=== PATIENT | female | born 1995 | race Caucasian/White ===

== ENCOUNTER 2016-09-24 23:49 | Emergency (ER) | payer OTHER ==
[2016-09-25 00:12] VITALS: BP 123/79; PULSE 127; TEMP 99.3; BMI 35.6
--- NOTE | 2016-09-25 00:45 | PDOC ---
History of Present Illness - General History Source: Patient Exam Limitations: No Limitations - History of Present Illness Initial Comments: 09/25/16 00:53 The patient is a 21 year old female with significant past medical history of seizure disorder who presents to the ED with 1 week of sore throat. Patient reports she is able to swallow liquids, but not solids. No sick contacts or recent travels. The patient denies fever, chills, cough, SOB, chest pain, and palpitations. The patient denies abdominal pain, nausea, vomiting, and diarrhea. Allergies: NKDA Social History: Denies alcohol, tobacco, or drug use. Past Surgical History: None reported PCP: Dr. Dionna Frias <Balbina Loo - Last Filed: 09/25/16 01:54> - General History Source: Patient <OscarAba handy - Last Filed: 09/25/16 02:43> - General Chief Complaint: Sore Throat Stated Complaint: COLD SYMPTOMS Time Seen by Provider: 09/25/16 00:43 Past History <Balbina Loo - Last Filed: 09/25/16 01:54> - Past Medical History Seizures: Yes (EPILEPSY) - Immunization History Immunization Up to Date: Yes - Psycho/Social/Smoking Cessation Hx Anxiety: No Suicidal Ideation: No Smoking Status: No Smoking History: Never smoked Have you smoked in the past 12 months: No Number of Cigarettes Smoked Daily: 0 Hx Alcohol Use: No Drug/Substance Use Hx: No Substance Use Type: None <Aba Pandya - Last Filed: 09/25/16 02:43> - Past Medical History Allergies/Adverse Reactions: Allergies Allergy/AdvReac Type Severity Reaction Status Date / Time shellfish derived Allergy Intermediate Hives Verified 06/24/16 12:46 Home Medications: Ambulatory Orders Albuterol Sulfate Inhaler - [Ventolin HFA Inhaler -] 2 inh PO Q4H #1 inh Ibuprofen 800 mg PO TID #30 tablet 09/25/16 Levetiracetam [Keppra -] 1,000 mg PO BID 09/25/16 Penicillin V Potassium [Pen Vee K -] 500 mg PO TID #30 tablet 09/25/16 Topiramate 50 mg PO BID 09/25/16 Review of Systems - Review of Systems Able to Perform ROS?: Yes Comments:: 09/25/16 00:54 CONSTITUTIONAL: Absent: fever, no chills, no fatigue EYES: Absent: visual changes ENT: +sore throat Absent: ear pain CARDIOVASCULAR: Absent: chest pain, no palpitations RESPIRATORY: Absent: cough, no SOB GI: Absent: abdominal pain, no nausea, no vomiting, no constipation, no diarrhea GENITOURINARY: Absent: dysuria, no frequency, no hematuria MUSKULOSKELETAL: Absent: back pain, no arthralgia, no myalgia SKIN: Absent: rash NEURO: Absent: headache <CindaBalbina - Last Filed: 09/25/16 01:54> *Physical Exam - Vital Signs Last Vital Signs Temp Pulse Resp BP Pulse Ox 99.3 F 127 H 18 123/79 97 09/25/16 00:10 09/25/16 00:10 09/25/16 00:10 09/25/16 00:10 09/25/16 00:10 - Physical Exam Comments: 09/25/16 00:54 GENERAL: Well-appearing, well-nourished. Mild distress. During exam, pt almost developed a laryngeal spasm. HEENT: Normocephalic, atraumatic. PERRL, EOM intact. No exudates or enlargement of posterior pharynx CARDIOVASCULAR: Normal S1, S2. Regular rate and rhythm. PULMONARY: Clear to auscultation bilaterally. ABDOMEN: Soft, non-distended, non-tender. EXTREMITIES: Normal ROM in all four extremities. No gross deformities. SKIN: Warm, dry. No rash NEUROLOGICAL: No focal neurological deficits. <Balbina Loo - Last Filed: 09/25/16 01:54> - Vital Signs Last Vital Signs Temp Pulse Resp BP Pulse Ox 99.3 F 127 H 18 123/79 97 09/25/16 00:10 09/25/16 00:10 09/25/16 00:10 09/25/16 00:10 09/25/16 00:10 <Aba Pandya - Last Filed: 09/25/16 02:43> ED Treatment Course - RADIOLOGY Radiograph Interpretation: 09/25/16 01:54 EXAM: X-ray next soft tissue AP and lateral views Reviewed by Imaging orthodontist vice president: FINDINGS: The airway is widely patent. No radiopaque foreign bodies Normal appearance of the epiglottis The prevertebral soft tissues are within normal limits The visualized upper lungs are clear No osseous abnormalities <Balbina Loo - Last Filed: 09/25/16 01:54> Medical Decision Making - Medical Decision Making 09/25/16 01:58 Dr. Pandya: The scribe's documentation has been prepared under my direction and personally reviewed by me in its entirery. I confirm that the note above accurately reflects all work, treatment, procedures, and medical decision making performed by me. Pt xray was negative for Epiglottis. Pt still have moderate pain on swallowing. Will treat for pharyngitis. Rx Pen VK 500mg, Ibuprofen 800mg. Pt will be discharge <Aba Pandya - Last Filed: 09/25/16 02:43> *DC/Admit/Observation/Transfer - Attestations Scribe Attestion: 09/25/16 00:54 Documentation prepared by Balbina Loo, acting as director global medical affairs for Aba Pandya MD <Balbina Loo - Last Filed: 09/25/16 01:54> - Discharge Dispostion Admit: No <Aba Pandya - Last Filed: 09/25/16 02:43> Diagnosis at time of Disposition: Pharyngitis Qualifiers: Pharyngitis/tonsillitis etiology: unspecified etiology Qualified Code(s): J02.9 - Acute pharyngitis, unspecified - Discharge Dispostion Disposition: HOME Condition at time of disposition: Stable - Prescriptions Prescriptions: Ibuprofen 800 mg PO TID #30 tablet Penicillin V Potassium [Pen Vee K -] 500 mg PO TID #30 tablet - Referrals Referrals: Valerie Frias MD [Primary Care Provider] - Robert Ro MD [Staff Physician] - - Patient Instructions Printed Discharge Instructions: DI for Pharyngitis/Tonsillopharyngitis -- Adult
[2016-09-25] MEDS ORDERED: PENICILLIN V POTASSIUM 250 MG/5 ML 100 ML BOTTLE PO ONE (01:51)
[2016-09-25] MEDS ORDERED: IBUPROFEN 100 MG/5 ML UNIT DOSE CUPS PO ONE (01:55)
[2016-09-25] MEDS ORDERED: IBUPROFEN 400 MG TABLET (FP) PO ONE (02:31)
== END 2016-09-25 03:13 | disposition home or self-care (01) ==
LOC: JER 23:49
DX: J02.9 Acute pharyngitis, unspecified (principal); G40.909 Epilepsy, unspecified, not intractable, without status epilepticus
CPT/HCPCS: 70360-TC; 84703; 99281-25

== ENCOUNTER 2016-09-26 11:08 | Emergency (ER) | payer OTHER ==
[2016-09-26 11:14] VITALS: BMI 35.6
--- NOTE | 2016-09-26 11:26 | PDOC ---
History of Present Illness - General History Source: Patient Exam Limitations: No Limitations - History of Present Illness Initial Comments: 09/26/16 12:01 The patient is a 21 year old female, with a significant past medical history of epilepsy(on Keppra), who presents to the emergency department complaining of a sore throat and cough for approximately 2 days. The patient reports she presented to the ED with similar symptoms on Thursday, where she received an Neck X-Ray which was negative. The patient reports she was given penicillin and motrin with no relief of symptoms. Today, she reports congestion, rhinorrhea, nausea and various emetic episodes(non-bloody/non-bilious). The patient reports a decrease in appetite and difficulty swallowing solids due to throat swelling. The patient reports she has been unable to keep down her penicillins or motrin. The patient denies any chills, headache, or dizziness. The patient denies any abdominal pain, diarrhea, or constipation. The patient denies any dysuria, hematuria, frequency or urgency. The patient denies any recent travel or sick contacts. Allergies: Shellfish(hives), NKDA Past Surgical History: None reported. Social History: Non-smoker. Denies alcohol or drug use. PCP: Dr. Frias <Jerome Owens - Last Filed: 09/26/16 12:01> <Constance Smart - Last Filed: 09/27/16 08:45> - General Chief Complaint: Pain Stated Complaint: VOMITING, ABD PAIN Time Seen by Provider: 09/26/16 11:22 Past History <Jerome Owens - Last Filed: 09/26/16 12:01> - Past Medical History Seizures: Yes (EPILEPSY) - Immunization History Immunization Up to Date: Yes - Psycho/Social/Smoking Cessation Hx Anxiety: No Suicidal Ideation: No Smoking Status: No Smoking History: Never smoked Have you smoked in the past 12 months: No Number of Cigarettes Smoked Daily: 0 Information on smoking cessation initiated: No Hx Alcohol Use: No Drug/Substance Use Hx: No Substance Use Type: None <Constance Smart - Last Filed: 09/27/16 08:45> - Past Medical History Allergies/Adverse Reactions: Allergies Allergy/AdvReac Type Severity Reaction Status Date / Time shellfish derived Allergy Intermediate Hives Verified 09/26/16 11:10 Home Medications: Ambulatory Orders Albuterol Sulfate Inhaler - [Ventolin HFA Inhaler -] 2 inh PO Q4H #1 inh Ibuprofen 800 mg PO TID #30 tablet 09/25/16 Levetiracetam [Keppra -] 1,000 mg PO BID 09/25/16 Penicillin V Potassium [Pen Vee K -] 500 mg PO TID #30 tablet 09/25/16 Topiramate 50 mg PO BID 09/25/16 Review of Systems - Review of Systems Able to Perform ROS?: Yes Comments:: 09/26/16 12:02 GENERAL/CONSTITUTIONAL: No fever or chills. No weakness. HEAD, EYES, EARS, NOSE AND THROAT: +Sore throat, +nasal congestion, + rhinorrhea. No change in vision. No ear pain or discharge. CARDIOVASCULAR: No chest pain or shortness of breath. RESPIRATORY: +Cough. No wheezing or hemoptysis. GASTROINTESTINAL: +Nausea, +vomiting. No diarrhea or constipation. GENITOURINARY: No dysuria, frequency, or change in urination. MUSCULOSKELETAL: No joint or muscle swelling or pain. No neck or back pain. SKIN: No rash NEUROLOGIC: No headache, vertigo, loss of consciousness, or change in strength/ sensation. ENDOCRINE: +Decreased appetite. No increased thirst. No abnormal weight change. HEMATOLOGIC/LYMPHATIC: No anemia, easy bleeding, or history of blood clots. ALLERGIC/IMMUNOLOGIC: No hives or skin allergy. <Jerome Owens - Last Filed: 09/26/16 12:01> *Physical Exam - Vital Signs Last Vital Signs Temp Pulse Resp BP Pulse Ox 98.7 F 97 H 18 108/74 100 09/26/16 11:12 09/26/16 11:12 09/26/16 11:12 09/26/16 11:12 09/26/16 11:12 - Physical Exam Comments: 09/26/16 12:04 GENERAL: Awake, alert, and fully oriented, in no acute distress HEAD: No signs of trauma EYES: PERRLA, EOMI, sclera anicteric, conjunctiva clear ENT: Auricles normal inspection, hearing grossly normal, nares patent. Moist mucosa. Clear rhinorrhea. Pharyngeal erythema, but no tonsillar exudates NECK: Normal ROM, supple, no lymphadenopathy, JVD, or masses LUNGS: Intermittent dry cough. Breath sounds equal, clear to auscultation bilaterally. No wheezes, and no crackles HEART: Regular rate and rhythm, normal S1 and S2, no murmurs, rubs or gallops ABDOMEN: Soft, nontender, normoactive bowel sounds. No guarding, no rebound. No masses EXTREMITIES: Normal range of motion, no edema. No clubbing or cyanosis. No cords, erythema, or tenderness NEUROLOGICAL: Cranial nerves II through XII grossly intact. Normal speech, normal gait SKIN: Warm, Dry, normal turgor, no rashes or lesions noted. <Jerome Owens - Last Filed: 09/26/16 12:01> - Vital Signs Last Vital Signs Temp Pulse Resp BP Pulse Ox 98.7 F 97 H 18 108/74 100 09/26/16 11:12 09/26/16 11:12 09/26/16 11:12 09/26/16 11:12 09/26/16 11:12 <Constance Smart - Last Filed: 09/27/16 08:45> ED Treatment Course - LABORATORY CBC & Chemistry Diagram: 09/26/16 12:00 09/26/16 12:00 <Constance Smart - Last Filed: 09/27/16 08:45> Medical Decision Making - Medical Decision Making 09/26/16 14:26 Pt reassessed. She states that she is feeling much better. Able to tolerate PO, and pain is relieved. I counseled her to continue the penicillin. RSV and flu are negative. Stable for DC home. <Constance Smart - Last Filed: 09/27/16 08:45> *DC/Admit/Observation/Transfer - Attestations Scribe Attestion: 09/26/16 12:02 Documentation prepared by Jerome Owens, acting as medical numerical control operator for Constance Smart MD. <Jerome Owens - Last Filed: 09/26/16 12:01> - Discharge Dispostion Admit: No <Constance Smart - Last Filed: 09/27/16 08:45> Diagnosis at time of Disposition: Pharyngitis Qualifiers: Pharyngitis/tonsillitis etiology: unspecified etiology Qualified Code(s): J02.9 - Acute pharyngitis, unspecified - Discharge Dispostion Disposition: HOME Condition at time of disposition: Stable - Referrals Referrals: Valerie Frias MD [Primary Care Provider] - - Patient Instructions Printed Discharge Instructions: DI for Pharyngitis/Tonsillopharyngitis -- Adult
[2016-09-26] MEDS ORDERED: DEXAMETHASONE SOD PHOSPHATE 10 MG/1 ML VIAL IVPB ONE (11:58)
[2016-09-26] MEDS ORDERED: KETOROLAC TROMETHAMINE 30 MG/1 ML VIAL IVPUSH ONE (11:58)
[2016-09-26] MEDS ORDERED: SODIUM CHLORIDE 1,000 ML IV STA (11:58)
[2016-09-26] MEDS ORDERED: KETOROLAC TROMETHAMINE 30 MG/1 ML VIAL ONE (12:02)
[2016-09-26] MEDS ORDERED: DEXAMETHASONE SOD PHOSPHATE 10 MG/1 ML VIAL ONE (12:09)
[2016-09-26 12:22] LABS: BASOPHIL 0.9 % (0-2.0); EOSINOPHIL 5.8 % (0-4.5); MCH 30.9 pg (25.7-33.7); MCHC 35.2 g/dl (32.0-36.0); MEAN CELL VOLUME 87.7 fl (80-96); NEUTROPHILS 57.7 % (42.8-82.8); PLATELET COUNT 297 K/MM3 (134-434); RDW 12.2 % (11.6-15.6); WHITE BLOOD COUNT 7.3 K/mm3 (4.0-10.0)
[2016-09-26 12:49] LABS: CALCIUM 8.4 mg/dL (8.5-10.1); CREATININE 0.5 mg/dL (0.55-1.02)
[2016-09-26 14:33] VITALS: BP 103/63; PULSE 74; TEMP 98.1
== END 2016-09-26 14:33 | disposition home or self-care (01) ==
LOC: JER 11:08
PROC: 3E0333Z Introduction of Anti-inflammatory into Peripheral Vein, Percutaneous Approach (ICD-10-PCS; principal; 2016-09-26)
PROC: 3E0333Z Introduction of Anti-inflammatory into Peripheral Vein, Percutaneous Approach (ICD-10-PCS; 2016-09-26)
DX: J02.9 Acute pharyngitis, unspecified (principal); G40.909 Epilepsy, unspecified, not intractable, without status epilepticus
CPT/HCPCS: 36415; 80048; 85025; 87420; 87804; 96374; 96375; 99283-25

== ENCOUNTER 2017-05-27 20:14 | Emergency (ER) | payer OTHER ==
--- NOTE | 2017-05-27 20:46 | PDOC ---
History of Present Illness - General History Source: Patient Exam Limitations: No Limitations - History of Present Illness Initial Comments: 05/27/17 20:54 The patient is a 22 year old female with a significant PMH of epilepsy (on Keppra) who presents to the emergency department s/p seizure just prior to arrival. The patient reports that her seizures just come on with no prior warning. She reports an associated slight headache. She is compliant with her medications. The patient denies any other complaints. The patient denies any recent travel or sick contacts. The patient denies chest pain, shortness of breath, and dizziness. Denies fever, chills, nausea, vomit, diarrhea and constipation. Denies dysuria, frequency, urgency and hematuria. Allergies: NKDA Past surgical history: None reported. Social history: No reported toxic habits PCP: Not on Staff. <Dallas Moore - Last Filed: 05/27/17 20:53> - General History Source: Patient <Aba Pandya - Last Filed: 05/27/17 22:56> - General Chief Complaint: Seizure Stated Complaint: SEIZURE Time Seen by Provider: 05/27/17 20:42 Past History <Dallas Moore - Last Filed: 05/27/17 20:53> - Past Medical History Seizures: Yes (EPILEPSY) - Immunization History Immunization Up to Date: Yes - Suicide/Smoking/Psychosocial Hx Smoking Status: No Smoking History: Never smoked Have you smoked in the past 12 months: No Number of Cigarettes Smoked Daily: 0 Hx Alcohol Use: No Drug/Substance Use Hx: No Substance Use Type: None <Aba Pandya - Last Filed: 05/27/17 22:56> - Past Medical History Allergies/Adverse Reactions: Allergies Allergy/AdvReac Type Severity Reaction Status Date / Time shellfish derived Allergy Intermediate Hives Verified 05/27/17 20:36 Home Medications: Ambulatory Orders Albuterol Sulfate Inhaler - [Ventolin HFA Inhaler -] 2 inh PO Q4H #1 inh Levetiracetam [Keppra -] 1,000 mg PO BID 09/25/16 Topiramate 50 mg PO BID 09/25/16 Levofloxacin [Levaquin -] 500 mg PO DAILY #4 tablet 05/27/17 Review of Systems - Review of Systems Able to Perform ROS?: Yes Comments:: 05/27/17 20:54 CONSTITUTIONAL: Absent: fever, chills, diaphoresis, generalized weakness, malaise, loss of appetite HEENT: Absent: rhinorrhea, nasal congestion, throat pain, throat swelling, difficulty swallowing, mouth swelling, ear pain, eye pain, visual Changes CARDIOVASCULAR: Absent: chest pain, syncope, palpitations, irregular heart rate, lightheadedness , peripheral edema RESPIRATORY: Absent: cough, shortness of breath, dyspnea with exertion, orthopnea, wheezing, stridor, hemoptysis GASTROINTESTINAL: Absent: abdominal pain, abdominal distension, nausea, vomiting, diarrhea, constipation, melena, hematochezia GENITOURINARY: Absent: dysuria, frequency, urgency, hesitancy, hematuria, flank pain, genital pain MUSCULOSKELETAL: Absent: myalgia, arthralgia, joint swelling SKIN: Absent: rash, itching, pallor HEMATOLOGIC/IMMUNOLOGIC: Absent: easy bleeding, easy bruising, lymphadenopathy, frequent infections ENDOCRINE: Absent: unexplained weight gain, unexplained weight loss, heat intolerance, cold intolerance NEUROLOGIC: (+) Headache. Absent: focal weakness or paresthesias, dizziness, unsteady gait, seizure, mental status changes, bladder or bowel incontinence PSYCHIATRIC: Absent: anxiety, depression, suicidal or homicidal ideation, hallucinations. <Dallas Moore - Last Filed: 05/27/17 20:53> *Physical Exam - Vital Signs Last Vital Signs Temp Pulse Resp BP Pulse Ox 98.4 F 90 15 128/80 100 05/27/17 20:38 05/27/17 20:38 05/27/17 20:38 05/27/17 20:38 05/27/17 20:38 - Physical Exam Comments: 05/27/17 20:54 Adult PE GENERAL: Well developed, well nourished. Awake and alert. No acute distress. HEENT: Normocephalic, atraumatic. PERRLA, EOMI. No conjunctival pallor. Sclera are non- icteric. Moist mucous membranes. Oropharynx is clear. NECK: Supple. Full ROM. No JVD. Carotid pulses 2+ and symmetric, without bruits. No thyromegaly. No lymphadenopathy. CARDIOVASCULAR: Regular rate and rhythm. No murmurs, rubs, or gallops. Distal pulses are 2+ and symmetric. PULMONARY: No evidence of respiratory distress. Lungs clear to auscultation bilaterally. No wheezing, rales or rhonchi. ABDOMINAL: Soft. Non-tender. Non-distended. No rebound or guarding. No organomegaly. Normoactive bowel sounds. MUSCULOSKELETAL Normal range of motion at all joints. No bony deformities or tenderness. No CVA tenderness. EXTREMITIES: No cyanosis. No clubbing. No edema. No calf tenderness. SKIN: Warm and dry. Normal capillary refill. No rashes. No jaundice. NEUROLOGICAL: Alert, awake, appropriate, and oriented. Cranial nerves 2-12 intact. No deficits to light touch and temperature in face, upper extremities and lower extremities. No motor deficits in the in face, upper extremities and lower extremities. Normoreflexic in the upper and lower extremities. Normal speech. Toes are downgoing bilaterally. Gait is normal without ataxia. PSYCHIATRIC: Cooperative. Good eye contact. Appropriate mood and affect. <Dallas Moore - Last Filed: 05/27/17 20:53> - Vital Signs Last Vital Signs Temp Pulse Resp BP Pulse Ox 98.4 F 90 15 128/80 100 05/27/17 20:38 05/27/17 20:38 05/27/17 20:38 05/27/17 20:38 05/27/17 20:38 <Aba Pandya - Last Filed: 05/27/17 22:56> ED Treatment Course - LABORATORY CBC & Chemistry Diagram: 05/27/17 21:07 05/27/17 21:55 <Aba Pandya - Last Filed: 05/27/17 22:56> Medical Decision Making - Medical Decision Making 05/27/17 22:54 Dr. Pandya: The scribe's documentation has been prepared under my direction and personally reviewed by me in its entirery. I confirm that the note above accurately reflects all work, treatment, procedures, and medical decision making performed by me. patient has not seized since she's been in the department. Patient has also concomitant urinary tract infection. discharged with antibiotic that was transmitted to her pharmacy. <Aba Pandya - Last Filed: 05/27/17 22:56> *DC/Admit/Observation/Transfer - Attestations Scribe Attestion: 05/27/17 20:54 Documentation prepared by Dallas Moore, acting as medical office representative for Aba Pandya DO. <Dallas Moore - Last Filed: 05/27/17 20:53> - Discharge Dispostion Admit: No <Aba Pandya - Last Filed: 05/27/17 22:56> Diagnosis at time of Disposition: Seizure, UTI (urinary tract infection) - Discharge Dispostion Disposition: HOME Condition at time of disposition: Improved - Prescriptions Prescriptions: Levofloxacin [Levaquin -] 500 mg PO DAILY #4 tablet - Referrals Referrals: Valerie Frias MD [Primary Care Provider] - - Patient Instructions Printed Discharge Instructions: DI for Urinary Tract Infection (UTI), DI for Seizure Disorder -- Adult
[2017-05-27] MEDS ORDERED: levETIRAcetam 500 MG/5 ML INJECTION VIAL IVPB ONE ×2 (20:47→21:00)
[2017-05-27] MEDS ORDERED: ACETAMINOPHEN 500 MG TABLET (FP) PO ONE (20:47)
[2017-05-27] MEDS ORDERED: TOPIRAMATE 25 MG TABLET (FP) PO ONE (20:48)
[2017-05-27 20:49] VITALS: BP 128/80; PULSE 90; TEMP 98.4; BMI 23.8
[2017-05-27] MEDS ORDERED: TOPIRAMATE 25 MG TABLET (FP) ONE ×2 (21:00→21:09)
[2017-05-27] MEDS ORDERED: ACETAMINOPHEN 325 MG TABLET (FP) ONE ×2 (21:00→21:09)
[2017-05-27 21:18] LABS: BASOPHIL 1.4 % (0-2.0); EOSINOPHIL 3.8 % (0-4.5); MCH 31.1 pg (25.7-33.7); MCHC 35.3 g/dl (32.0-36.0); MEAN PLT VOLUME 8.3 fl (7.5-11.1); NEUTROPHILS 45.6 % (42.8-82.8); PLATELET COUNT 292 K/MM3 (134-434); RDW 12.5 % (11.6-15.6); WHITE BLOOD COUNT 7.5 K/mm3 (4.0-10.0)
[2017-05-27] MEDS ORDERED: ONDANSETRON 4 MG/2 ML VIAL IVPUSH STA (21:34)
[2017-05-27 21:35] LABS: URINE APPEARANCE CLOUDY; URINE BILIRUBIN NEGATIVE (NEGATIVE); URINE BLOOD 1+ (NEGATIVE); URINE COLOR YELLOW; URINE GLUCOSE (UA) NEGATIVE (NEGATIVE); URINE KETONE NEGATIVE (NEGATIVE); URINE NITRITE NEGATIVE (NEGATIVE); URINE UROBILINOGEN NEGATIVE mg/dL (0.2-1.0)
[2017-05-27] MEDS ORDERED: ONDANSETRON 4 MG/2 ML VIAL ONE (21:37)
[2017-05-27 21:39] LABS: URINE PROTEIN 1+ (NEGATIVE)
[2017-05-27 22:17] LABS: GRANULAR CASTS 7 /lpf; URINE BACTERIA RARE /hpf (NONE SEEN); URINE HYALINE CAST 5 /lpf; URINE MUCUS RARE; URINE RBC 5 /hpf (0-3); URINE WBC 6 /hpf (3-5)
[2017-05-27 22:24] LABS: ALBUMIN 3.7 g/dl (3.4-5.0); ALK PHOS 66 U/L (45-117); ANION GAP 8 (8-16); BILIRUBIN,TOTAL 0.3 mg/dL (0.2-1.0); CALCIUM 8.1 mg/dL (8.5-10.1); CO2 22 mmol/L (21-32); CREATININE 0.6 mg/dL (0.55-1.02); GLUCOSE,RANDOM 89 mg/dL (74-106); SGOT/AST 33 U/L (15-37); SGPT/ALT 68 U/L (12-78); TOT PROT 7.1 g/dl (6.4-8.2)
[2017-05-27 22:25] LABS: URINE LEUK ESTERASE TRACE (NEGATIVE)
[2017-05-27] MEDS ORDERED: LEVOFLOXACIN 500 MG TABLET (FP) PO ONE (22:53)
[2017-05-27] MEDS ORDERED: LEVOFLOXACIN 500 MG TABLET (FP) ONE (22:57)
== END 2017-05-27 23:03 | disposition home or self-care (01) ==
LOC: JER 20:14
PROC: 3E033GC Introduction of Other Therapeutic Substance into Peripheral Vein, Percutaneous Approach (ICD-10-PCS; principal; 2017-05-27)
DX: R56.9 Unspecified convulsions (principal); N39.0 Urinary tract infection, site not specified
CPT/HCPCS: 36415; 80053; 81003; 81015; 83735; 84703; 85025; 99283-25

== ENCOUNTER 2017-07-16 16:24 | Emergency (ER) | payer OTHER ==
--- NOTE | 2017-07-16 16:44 | PDOC ---
Attending Attestation - Resident Resident Name: Nick Thapa - ED Attending Attestation I have performed the following: I have examined & evaluated the patient, The case was reviewed & discussed with the resident, I agree w/resident's findings & plan, Exceptions are as noted - HPI HPI: 07/16/17 16:43 Breakthrough Seizure - Physicial Exam PE: 07/16/17 16:44 VSS/NAD, Recovered from post ictal period - Medical Decision Making 07/16/17 16:[address] Thapa's Assessment and Plan
[2017-07-16 16:45] VITALS: BP 104/72; PULSE 105; TEMP 98.7; BMI 38.9
[2017-07-16] MEDS ORDERED: ACETAMINOPHEN 500 MG TABLET (FP) PO ONE (17:08)
[2017-07-16] MEDS ORDERED: ACETAMINOPHEN INJECTION 100 ML IVPB ONE (17:20)
--- NOTE | 2017-07-16 17:22 | PDOC ---
History of Present Illness - General Chief Complaint: Seizure Stated Complaint: Seizure Time Seen by Provider: 07/16/17 16:30 History Source: Patient, Family Exam Limitations: No Limitations - History of Present Illness Initial Comments: 07/16/17 17:09 The patient is a 22F with a PMH of seizures, on Keppra and Topomax, who presents to the ED via EMS for a witnessed seizure. The patient's sister states that she was talking to the patient and saw that the patient had a blank stare on her face and then began to roll her eyes in her head and bit her tongue. She was slowly lowered to the ground and EMS was called. The patient was disoriented after this episode. The patient states that this usually happens when she has a UTI. She is unsure if she is or not - she has unprotected sex and irregular periods. Past History - Past Medical History Allergies/Adverse Reactions: Allergies Allergy/AdvReac Type Severity Reaction Status Date / Time shellfish derived Allergy Intermediate Hives Verified 05/27/17 20:36 Home Medications: Ambulatory Orders Albuterol Sulfate Inhaler - [Ventolin HFA Inhaler -] 2 inh PO Q4H #1 inh Levetiracetam [Keppra -] 1,000 mg PO BID 09/25/16 Topiramate 50 mg PO BID 09/25/16 Levofloxacin [Levaquin -] 500 mg PO DAILY #4 tablet 05/27/17 COPD: No Seizures: Yes (EPILEPSY) - Immunization History Immunization Up to Date: Yes - Suicide/Smoking/Psychosocial Hx Smoking Status: No Smoking History: Never smoked Have you smoked in the past 12 months: No Number of Cigarettes Smoked Daily: 0 Information on smoking cessation initiated: No Hx Alcohol Use: No Drug/Substance Use Hx: No Substance Use Type: None Review of Systems - Review of Systems Able to Perform ROS?: Yes Comments:: 07/16/17 17:30 GENERAL/CONSTITUTIONAL: No fever or chills. No weakness. HEAD, EYES, EARS, NOSE AND THROAT: No change in vision. No ear pain or discharge. No sore throat. GASTROINTESTINAL: No nausea, vomiting, diarrhea, constipation, or abdominal pain. GENITOURINARY: Positive for questionable UTI. No dysuria, frequency, hematuria, or change in urination. CARDIOVASCULAR: No chest pain, palpitations, or lightheadedness. RESPIRATORY: No cough, wheezing, shortness of breath, or hemoptysis. MUSCULOSKELETAL: No joint or muscle swelling or pain. No neck or back pain. SKIN: No rash or lesions. NEUROLOGIC: Positive for seizure and headache. No numbness, tingling, weakness, loss of consciousness, or change in strength/sensation. ENDOCRINE: No increased thirst. No abnormal weight change. HEMATOLOGIC/LYMPHATIC: No anemia, easy bleeding, or history of blood clots. ALLERGIC/IMMUNOLOGIC: No hives or skin allergy. Is the patient limited Vietnamese proficient: No *Physical Exam - Vital Signs Last Vital Signs Temp Pulse Resp BP Pulse Ox 98.7 F 105 H 20 104/72 100 07/16/17 16:41 07/16/17 16:41 07/16/17 16:41 07/16/17 16:41 07/16/17 16:41 - Physical Exam Comments: 07/16/17 17:39 GENERAL: Well developed, well nourished. Awake and alert. No acute distress. HEENT: Normocephalic, atraumatic. Hearing grossly normal. Moist mucous membranes. PERRLA, EOMI. No conjunctival pallor. Sclera are non-icteric. Oropharynx is clear. NECK: Supple. Full ROM. No JVD. CARDIOVASCULAR: Regular rate and rhythm. No murmurs, rubs, or gallops. Distal pulses are 2+ and symmetric. PULMONARY: No evidence of respiratory distress. Lungs clear to auscultation bilaterally. No wheezing, rales or rhonchi. ABDOMINAL: Soft. Non-tender. Non-distended. No rebound or guarding. No organomegaly. Normoactive bowel sounds. GENITOURINARY: No CVA tenderness bilaterally. MUSCULOSKELETAL: Normal range of motion at all joints. No bony deformities or tenderness. EXTREMITIES: No cyanosis. No clubbing. No edema. No calf tenderness. SKIN: Warm and dry. Normal capillary refill. No rashes. No jaundice. NEUROLOGICAL: Alert, awake, appropriate. Cranial nerves 2-12 intact. No deficits to light touch and temperature in face, upper extremities and lower extremities. No motor deficits in the in face, upper extremities and lower extremities. Normoreflexic in the upper and lower extremities. Normal speech. Gait is normal without ataxia. PSYCHIATRIC: Cooperative. Good eye contact. Appropriate mood and affect. ED Treatment Course - LABORATORY CBC & Chemistry Diagram: 07/16/17 17:15 07/16/17 17:15 Medical Decision Making - Medical Decision Making 07/16/17 17:41 The patient is a 22 F with a PMH of seizures on keppra and topomax, compliant with meds, who presents to the ER after having a witnessed seizure. I have sent basic labs and UA. Will reassess when labs/imaging return. The patient states she is nauseous and has a headache. Will give zofran and tylenol IV to prevent PO. 07/16/17 20:13 The patient states that her headache is continuing and she now has a stomach ache. Toradol and pepcid were ordered. 07/16/17 20:34 All labs WNL. Patient states she feels much better. Clinically ready for d/c. Pt agrees. *DC/Admit/Observation/Transfer Diagnosis at time of Disposition: Seizure - Discharge Dispostion Disposition: HOME Condition at time of disposition: Stable Admit: No - Referrals Referrals: Valerie Frias MD [Primary Care Provider] - - Patient Instructions Printed Discharge Instructions: Seizure Disorder -- Adult - Post Discharge Activity
[2017-07-16 17:31] LABS: BASO # 0.1 # (0.1-1); BASO % 1.1 % (0-2.0); EOS # 0.2 # (0-4.5); EOS % 2.7 % (0-4.5); LYMPH # 3.3 (8-40); MCH 30.6 pg (25.7-33.7); MCHC 34.4 g/dl (32.0-36.0); MEAN CELL VOLUME 89.2 fl (80-96); MEAN PLT VOLUME 8.3 fl (7.5-11.1); MONO # 0.4 # (3.8-10.2); NEUT # 2.9 # (42.8-82.8); NEUT % 42.7 % (42.8-82.8); PLATELET COUNT 286 K/MM3 (134-434); RDW 12.3 % (11.6-15.6); WHITE BLOOD COUNT 6.8 K/mm3 (4.0-10.0)
[2017-07-16] MEDS ORDERED: ACETAMINOPHEN 1000 MG/100 ML VIAL (NON FORMULARY) IVPB ONE (17:32)
[2017-07-16] MEDS ORDERED: ONDANSETRON 4 MG/2 ML VIAL ONE (17:32)
[2017-07-16] MEDS ORDERED: ONDANSETRON 4 MG/2 ML VIAL IVPUSH ONE (17:32)
[2017-07-16 17:59] LABS: URINE APPEARANCE CLOUDY; URINE BILIRUBIN NEGATIVE (NEGATIVE); URINE BLOOD NEGATIVE (NEGATIVE); URINE COLOR YELLOW; URINE GLUCOSE (UA) NEGATIVE (NEGATIVE); URINE KETONE TRACE (NEGATIVE); URINE NITRITE NEGATIVE (NEGATIVE); URINE PROTEIN NEGATIVE (NEGATIVE); URINE UROBILINOGEN NEGATIVE mg/dL (0.2-1.0)
[2017-07-16 18:13] LABS: URINE LEUK ESTERASE 1+ (NEGATIVE)
[2017-07-16 18:18] LABS: ANION GAP 10 (8-16); CALCIUM 8.6 mg/dL (8.5-10.1); CO2 20 mmol/L (21-32); CREATININE 0.5 mg/dL (0.55-1.02); GLUCOSE,RANDOM 95 mg/dL (74-106); SGOT/AST 22 U/L (15-37); SGPT/ALT 52 U/L (12-78)
[2017-07-16 18:19] LABS: ALK PHOS 87 U/L (45-117); BILIRUBIN,TOTAL 0.5 mg/dL (0.2-1.0); TOT PROT 7.7 g/dl (6.4-8.2)
[2017-07-16 18:27] LABS: URINE MUCUS RARE; URINE RBC 4 /hpf (0-3); URINE WBC 5 /hpf (3-5)
[2017-07-16] MEDS ORDERED: KETOROLAC TROMETHAMINE 30 MG/1 ML VIAL IVPUSH ONE (19:44)
[2017-07-16] MEDS ORDERED: FAMOTIDINE IV 20 MG/12 ML VIAL IVPUSH ONE (19:44)
[2017-07-16] MEDS ORDERED: KETOROLAC TROMETHAMINE 30 MG/1 ML VIAL ONE (19:44)
[2017-07-16] MEDS ORDERED: FAMOTIDINE 20 MG/50 ML IVPB 20 MG/50 ML MG IVPB ONE (19:45)
[2017-07-16 23:07] LABS: URINE LEUK ESTERASE Negative (NEGATIVE)
== END 2017-07-16 21:12 | disposition home or self-care (01) ==
LOC: JER 16:24
PROC: 3E033NZ Introduction of Analgesics, Hypnotics, Sedatives into Peripheral Vein, Percutaneous Approach (ICD-10-PCS; principal; 2017-07-16)
PROC: 3E0333Z Introduction of Anti-inflammatory into Peripheral Vein, Percutaneous Approach (ICD-10-PCS; 2017-07-16)
PROC: 3E033GC Introduction of Other Therapeutic Substance into Peripheral Vein, Percutaneous Approach (ICD-10-PCS; 2017-07-16)
PROC: 3E033GC Introduction of Other Therapeutic Substance into Peripheral Vein, Percutaneous Approach (ICD-10-PCS; 2017-07-16)
DX: G40.909 Epilepsy, unspecified, not intractable, without status epilepticus (principal)
CPT/HCPCS: 36415; 80053; 81003; 81015; 84703; 85025; 99282-25

== ENCOUNTER 2017-09-08 00:16 | Emergency (ER) | payer OTHER ==
--- NOTE | 2017-09-08 00:26 | PDOC ---
History of Present Illness - General History Source: Patient Exam Limitations: No Limitations - History of Present Illness Initial Comments: 09/08/17 00:57 The patient is a 22 year old female with history of seizure disorder (on Keppra and Topamax) brought in by EMS after an episode of tonic-clonic activity, consistent with prior seizures, tonight. The episode was witnessed by patient's family. The family report the episode occurred while the patient was in bed. No fall. The patient denies any tongue biting or urinary incontinence. The patient reports her seizures have been increasing in frequency over the past year. She is scheduled for 24 hr EEG. <Karen Lam - Last Filed: 09/08/17 00:57> <Iban Roblero - Last Filed: 09/08/17 02:22> <Melva Santoyo - Last Filed: 09/08/17 02:24> - General Chief Complaint: Seizure Stated Complaint: SEIZURE Time Seen by Provider: 09/08/17 00:24 Past History <Karen Lam - Last Filed: 09/08/17 00:57> <Iban Roblero - Last Filed: 09/08/17 02:22> - Past Medical History COPD: No Seizures: Yes (EPILEPSY) - Immunization History Immunization Up to Date: Yes - Suicide/Smoking/Psychosocial Hx Smoking Status: No Smoking History: Never smoked Have you smoked in the past 12 months: No Number of Cigarettes Smoked Daily: 0 Information on smoking cessation initiated: No Hx Alcohol Use: No Drug/Substance Use Hx: No Substance Use Type: None <Melva Santoyo - Last Filed: 09/08/17 02:24> - Past Medical History Allergies/Adverse Reactions: Allergies Allergy/AdvReac Type Severity Reaction Status Date / Time shellfish derived Allergy Intermediate Hives Verified 09/08/17 00:19 Home Medications: Ambulatory Orders Topiramate 50 mg PO BID 09/25/16 levETIRAcetam [Keppra -] 1,000 mg PO BID 09/25/16 Albuterol Sulfate Inhaler - [Ventolin HFA Inhaler -] 2 inh PO Q4H PRN 09/08/17 Review of Systems - Review of Systems Able to Perform ROS?: Yes Comments:: 09/08/17 01:00 GENERAL/CONSTITUTIONAL: No fever or chills. No weakness. HEAD, EYES, EARS, NOSE AND THROAT: No change in vision. No ear pain or discharge. No sore throat. No tongue biting. GASTROINTESTINAL: No nausea, vomiting, diarrhea or constipation. GENITOURINARY: No dysuria, frequency, or change in urination. CARDIOVASCULAR: No chest pain or shortness of breath. RESPIRATORY: No cough, wheezing, or hemoptysis. MUSCULOSKELETAL: No joint or muscle swelling or pain. No neck or back pain. SKIN: No rash NEUROLOGIC: +Tonic clonic activity. No headache, vertigo, or change in strength/ sensation. No urinary incontinence. ENDOCRINE: No increased thirst. No abnormal weight change. HEMATOLOGIC/LYMPHATIC: No anemia, easy bleeding, or history of blood clots. ALLERGIC/IMMUNOLOGIC: No hives or skin allergy. <Karen Lam - Last Filed: 09/08/17 00:57> *Physical Exam - Vital Signs Last Vital Signs Temp Pulse Resp BP Pulse Ox 98.7 F 109 H 14 119/79 100 09/08/17 00:19 09/08/17 00:19 09/08/17 00:19 09/08/17 00:19 09/08/17 00:19 - Physical Exam Comments: 09/08/17 01:04 GENERAL: Awake, alert, and fully oriented, in no acute distress HEAD: No signs of trauma EYES: PERRLA, EOMI, sclera anicteric, conjunctiva clear ENT: Auricles normal inspection, hearing grossly normal, nares patent, oropharynx clear without exudates. Moist mucosa NECK: Normal ROM, supple, no lymphadenopathy, JVD, or masses LUNGS: Breath sounds equal, clear to auscultation bilaterally. No wheezes, and no crackles HEART: Regular rate and rhythm, normal S1 and S2, no murmurs, rubs or gallops ABDOMEN: Soft, nontender, normoactive bowel sounds. No guarding, no rebound. No masses EXTREMITIES: Normal range of motion, no edema. No clubbing or cyanosis. No cords, erythema, or tenderness BACK: No midline spinal tenderness in cervical/thoracic/lumbar region NEUROLOGICAL: Normal speech, cranial nerves intact, negative pronator drift, 5/ 5 strength in all 4 extremities, normal sensation to light touch in all 4 extremities, normal cerebellar exam, normal gait, normal reflexes and tone SKIN: Warm, Dry, normal turgor, no rashes or lesions noted. <Karen Lam - Last Filed: 09/08/17 00:57> - Vital Signs Last Vital Signs Temp Pulse Resp BP Pulse Ox 98.7 F 109 H 14 119/79 100 09/08/17 00:19 09/08/17 00:19 09/08/17 00:19 09/08/17 00:19 09/08/17 00:19 <Iban Roblero - Last Filed: 09/08/17 02:22> - Vital Signs Last Vital Signs Temp Pulse Resp BP Pulse Ox 98.7 F 109 H 14 119/79 100 09/08/17 00:19 09/08/17 00:19 09/08/17 00:19 09/08/17 00:19 09/08/17 00:19 <Melva Santoyo - Last Filed: 09/08/17 02:24> ED Treatment Course - LABORATORY CBC & Chemistry Diagram: 09/08/17 00:33 09/08/17 00:33 - ADDITIONAL ORDERS Additional order review: 09/08/17 00:33 RBC 3.94 MCV 89.3 MCHC 34.5 RDW 12.1 MPV 8.2 Neutrophils % 59.3 D Lymphocytes % 32.2 D Monocytes % 6.7 Eosinophils % 0.9 Basophils % 0.9 - Medications Given in the ED: ED Medications Discontinued Medications Generic Name Dose Route Start Last Admin Trade Name Freq PRN Reason Stop Dose Admin Levetiracetam 1,000 mg 09/08/17 00:35 09/08/17 00:54 Keppra Injection - IVPB 09/08/17 00:36 1,000 mg ONCE ONE Administration <Karen Lam - Last Filed: 09/08/17 00:57> - LABORATORY CBC & Chemistry Diagram: 09/08/17 00:33 09/08/17 00:33 - ADDITIONAL ORDERS Additional order review: Laboratory Results 09/08/17 02 00:33 00:33 Sodium 138 Potassium 3.2 L Chloride 107 Carbon Dioxide 22 Anion Gap 9 BUN 18 Creatinine 0.5 L Creat Clearance w eGFR > 60 Random Glucose 103 Calcium 8.6 Total Bilirubin 0.3 D AST 23 ALT 60 Alkaline Phosphatase 84 Total Protein 7.1 Albumin 3.7 Serum , Qual Negative 09/08/17 00:33 RBC 3.94 MCV 89.3 MCHC 34.5 RDW 12.1 MPV 8.2 Neutrophils % 59.3 D Lymphocytes % 32.2 D Monocytes % 6.7 Eosinophils % 0.9 Basophils % 0.9 - Medications Given in the ED: ED Medications Discontinued Medications Generic Name Dose Route Start Last Admin Trade Name Karo PRN Reason Stop Dose Admin Levetiracetam 1,000 mg 09/08/17 00:35 09/08/17 00:54 Keppra Injection - IVPB 09/08/17 00:36 1,000 mg ONCE ONE Administration Ondansetron HCl 4 mg 09/08/17 01:42 09/08/17 01:55 Zofran Injection IVPUSH 09/08/17 01:43 4 mg ONCE ONE Administration <Iban Roblero - Last Filed: 09/08/17 02:22> - LABORATORY CBC & Chemistry Diagram: 09/08/17 00:33 09/08/17 00:33 <Melva Santoyo - Last Filed: 09/08/17 02:24> Medical Decision Making - Medical Decision Making 09/08/17 02:[address] Stern ([phone]) @1:36am. Awaiting call back. 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 Dr. Moraes called back @2:15am. Case discussed. <Iban Roblero - Last Filed: 09/08/17 02:22> - Medical Decision Making 09/08/17 00:52 22-year-old female brought in by ambulance from home after she had a witnessed tonic-clonic seizure that lasted about 5 minutes. There was witnessed by her family members and occur in her bed. There is no head trauma and she did not bite her tongue or have urinary incontinence. Very short postictal period because upon arrival, she was alert and able to answer all questions. Does not have headache, neck pain, fever or chills, nausea, vomiting She is on Keppra and Topamax for her medications. She states that she is compliant with these medications. She does have an appointment already with her neurologist for in-house EEG next week because there is any increase in the number of her seizures over the past few months. She did have a seizure in May, June, and obviously tonight in August. Neurologist is Dr. Ted Stern at [address] [place] [address]. Telephone number Plan is to give her keppra IV and contact her neurologist. Labs pending 09/08/17 01:35 reviewed labs, k=3.2 and will be supplemented <Melva Santoyo - Last Filed: 09/08/17 02:24> *DC/Admit/Observation/Transfer - Attestations Scribe Attestion: 09/08/17 01:05 Documentation prepared by Karen Lam, acting as medical imaging tech for Melva Santoyo MD. <Karen Lam - Last Filed: 09/08/17 00:57> <Iban Roblero - Last Filed: 09/08/17 02:22> <Melva Santoyo - Last Filed: 09/08/17 02:24> Diagnosis at time of Disposition: Seizure - Discharge Dispostion Disposition: HOME Condition at time of disposition: Stable - Patient Instructions Printed Discharge Instructions: DI for Seizure Disorder -- Adult Additional Instructions: Please follow up with your neurologist and continue to take your seizure medications
[2017-09-08 00:33] VITALS: BP 119/79; PULSE 109; TEMP 98.7; BMI 31.4
[2017-09-08] MEDS ORDERED: levETIRAcetam 500 MG/5 ML INJECTION VIAL IVPB ONE ×2 (00:35→00:51)
[2017-09-08 00:48] LABS: BASO % 0.9 % (0-2.0); EOS % 0.9 % (0-4.5); HEMATOCRIT 35.2 % (32.4-45.2); HEMOGLOBIN 12.2 GM/dL (10.7-15.3); LYMPH % 32.2 % (8-40); MCH 30.8 pg (25.7-33.7); MCHC 34.5 g/dl (32.0-36.0); MEAN CELL VOLUME 89.3 fl (80-96); MEAN PLT VOLUME 8.2 fl (7.5-11.1); MONO % 6.7 % (3.8-10.2); NEUT % 59.3 % (42.8-82.8); PLATELET COUNT 257 K/MM3 (134-434); RBC 3.94 M/mm3 (3.60-5.2); RDW 12.1 % (11.6-15.6); WHITE BLOOD COUNT 10.4 K/mm3 (4.0-10.0)
[2017-09-08 01:12] LABS: ALBUMIN 3.7 g/dl (3.4-5.0); ANION GAP 9 (8-16); BILIRUBIN,TOTAL 0.3 mg/dL (0.2-1.0); BLOOD UREA NITROGEN 18 mg/dL (7-18); CALCIUM 8.6 mg/dL (8.5-10.1); CHLORIDE 107 mmol/L (98-107); CO2 22 mmol/L (21-32); CREATININE 0.5 mg/dL (0.55-1.02); GLUCOSE,RANDOM 103 mg/dL (74-106); POTASSIUM 3.2 mmol/L (3.5-5.1); SGOT/AST 23 U/L (15-37); SGPT/ALT 60 U/L (12-78); SODIUM 138 mmol/L (136-145)
[2017-09-08 01:13] LABS: ALK PHOS 84 U/L (45-117); TOT PROT 7.1 g/dl (6.4-8.2)
[2017-09-08] MEDS ORDERED: POTASSIUM CHLORIDE TABS 20 MEQ TABLET.ER (FP) PO ONE ×2 (01:35→02:29)
[2017-09-08] MEDS ORDERED: ONDANSETRON 4 MG/2 ML VIAL IVPUSH ONE (01:42)
[2017-09-08] MEDS ORDERED: ONDANSETRON 4 MG/2 ML VIAL ONE (01:47)
== END 2017-09-08 02:37 | disposition home or self-care (01) ==
LOC: JER 00:16
PROC: 3E033GC Introduction of Other Therapeutic Substance into Peripheral Vein, Percutaneous Approach (ICD-10-PCS; principal; 2017-09-08)
DX: G40.509 Epileptic seizures related to external causes, not intractable, without status epilepticus (principal)
CPT/HCPCS: 36415; 80053; 84703; 85025; 96374; 96375; 99282-25

== ENCOUNTER 2017-10-07 21:32 | Emergency (ER) | payer OTHER ==
[2017-10-07 22:01] VITALS: BP 100/59; PULSE 111; TEMP 99.4; BMI 34.6
[2017-10-07] MEDS ORDERED: AZITHROMYCIN 250 MG TABLET PO ONE (22:35)
--- NOTE | 2017-10-07 22:35 | PDOC ---
History of Present Illness - General Chief Complaint: Cold Symptoms Stated Complaint: COLD SYMPTOMS Time Seen by Provider: 10/07/17 22:13 History Source: Patient Exam Limitations: No Limitations - History of Present Illness Initial Comments: 10/07/17 22:37 Patient came for evaluation of acute onset of fevers Tmax 103 last night, and sore throat pain. , denies cough, has generalized body aches. Timing/Duration: reports: getting worse Severity: reports: mild, moderate Associated Symptoms: reports: denies symptoms, facial pain, fever/chills, headache. denies: cough Past History - Travel Traveled outside of the country in the last 30 days: No Close contact w/someone who was outside of country & ill: No - Past Medical History Allergies/Adverse Reactions: Allergies Allergy/AdvReac Type Severity Reaction Status Date / Time shellfish derived Allergy Intermediate Hives Verified 10/07/17 22:01 Home Medications: Ambulatory Orders levETIRAcetam [Keppra -] 1,000 mg PO BID 09/25/16 Azithromycin [Zithromax -] 250 mg PO UTDICT #6 tab 10/07/17 Topiramate [Trokendi Xr] 200 mg PO ASDIR 10/07/17 COPD: No Seizures: Yes (EPILEPSY) - Immunization History Immunization Up to Date: Yes - Suicide/Smoking/Psychosocial Hx Smoking Status: No Smoking History: Never smoked Have you smoked in the past 12 months: No Number of Cigarettes Smoked Daily: 0 Information on smoking cessation initiated: No Hx Alcohol Use: No Drug/Substance Use Hx: No Substance Use Type: None Review of Systems - Review of Systems Able to Perform ROS?: Yes Is the patient limited [place] proficient: Yes Constitutional: Yes: Symptoms Reported, See HPI, Chills, Fever, Malaise HEENTM: Yes: Symptoms Reported, See HPI, Nose Congestion, Throat Pain, Throat Swelling, Difficulty Swallowing Respiratory: Yes: See HPI. No: Symptoms reported, Cough Musculoskeletal: No: Symptoms Reported All Other Systems: Reviewed and Negative *Physical Exam - Vital Signs Last Vital Signs Temp Pulse Resp BP Pulse Ox 99.4 F 111 H 19 100/59 98 10/07/17 21:50 10/07/17 21:50 10/07/17 21:50 10/07/17 21:50 10/07/17 21:50 - Physical Exam General Appearance: Yes: Nourished, Appropriately Dressed, Apparent Distress, Mild Distress HEENT: positive: NATHAN, TMs Normal (David but landmarks easily visualized), Pharyngeal Erythema, Tonsillar Erythema, Rhinorrhea. 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, Fully Oriented, Alert, Normal Mood/ Affect Progress Note - Progress Note Progress Note: Pharyngitis, we will treat with azithromycin as is probable strep *DC/Admit/Observation/Transfer Diagnosis at time of Disposition: Pharyngitis Qualifiers: Pharyngitis/tonsillitis etiology: unspecified etiology Qualified Code(s): J02.9 - Acute pharyngitis, unspecified - Discharge Dispostion Disposition: HOME Condition at time of disposition: Stable Admit: No - Referrals Referrals: Valerie Frias MD [Primary Care Provider] - - Patient Instructions Printed Discharge Instructions: DI for Pharyngitis/Tonsillopharyngitis -- Adult Additional Instructions: Rest, drink lots of fluids: Teas, water, soups Eat cold things: Ice cream, ice pops, ice chips Saltwater gargles Steamy showers/seem to face break up mucus Avoid contact with others until fevers and pain resolved Lots of handwashing and good hygiene, this is contagious Azithromycin as directed Tylenol or Motrin for fever and pain Followup with private physician in one to 2 days as needed if not improving Return to emergency department for worsened symptoms, fevers, dehydration - Post Discharge Activity Forms/Work/School Notes: Back to Work
[2017-10-07] MEDS ORDERED: AZITHROMYCIN 250 MG TABLET ONE ×2 (22:37)
== END 2017-10-07 22:42 | disposition home or self-care (01) ==
LOC: JERFT 21:32
DX: J02.9 Acute pharyngitis, unspecified (principal)
CPT/HCPCS: 84703; 99281-25

== ENCOUNTER 2017-12-09 19:00 | Emergency (ER) | payer OTHER ==
[2017-12-09 19:09] VITALS: TEMP 98.4; BMI 35.6
--- NOTE | 2017-12-09 19:34 | PDOC ---
Attending Attestation - HPI HPI: 12/09/17 20:00 The patient is a 22 year old female with past medical history of seizures (on Keppra ) presents to the emergency department s/p seizure at work. The patient reports she doesn't remember the incident due to losing consciousness but remembers feeling disoriented prior, coworkers witness the incident and helped her. The patient reports she daily takes her medications. The patient reports a localized posterior neck soreness for the past 3 days. The patient reports her medication were adjusted by her neurologist 3 months ago. Denies urinary incontinence, tongue biting and no aura before the incident. Denies fever, chills, nausea, vomiting. Denies diarrhea or constipation. Denies dysuria, hematuria, frequency or urgency to urinate. Allergies: Shellfish derived Social history: None reported Neurologist: Dr. Ted Stern PCP: Dr. Rodriguez Padilla 12/09/17 20:41 - Medical Decision Making 12/09/17 20:00 Documentation prepared by Teri Muñiz, acting as medical technicians for Aba Pandya DO. <Teri Muñiz - Last Filed: 12/09/17 20:41> - Resident Resident Name: Nick Thapa - ED Attending Attestation I have performed the following: I have examined & evaluated the patient, The case was reviewed & discussed with the resident, I agree w/resident's findings & plan, Exceptions are as noted - Physicial Exam PE: 12/09/17 20:22 *Physical Exam General Appearance: Yes: Appropriately Dressed. No: Apparent Distress, Intoxicated HEENT: positive: EOMI, NATHAN, Normal ENT Inspection, Normal Voice, TMs Normal, Pharynx Normal. negative: Pale Conjunctivae, Photophobia, Scleral Icterus (R), Scleral Icterus (L) Neck: positive: Trachea midline, Normal Thyroid, Supple. negative: Tender, Rigid, Carotid bruit, Stridor, Lymphadenopathy (R), Lymphadenopathy (L), Thyromegaly Respiratory/Chest: positive: Lungs Clear, Normal Breath Sounds. negative: Chest Tender, Respiratory Distress, Accessory Muscle Use, Labored Respiration, RES, Crackles, Rales, Rhonchi, Stridor, Wheezing, Dullness Cardiovascular: positive: Regular Rhythm, Regular Rate, S1, S2. negative: Edema , JVD, Murmur, Bradycardia, Tachycardia Vascular Pulses: Dorsalis-Pedis (R): 2+, Doralis-Pedis (L): 2+ Gastrointestinal/Abdominal: positive: Normal Bowel Sounds, Flat, Soft. negative : Tender, Organomegaly, Pulsatile Mass, Increased Bowel Sounds, Decreased BS, Distended, Guarding, Rebound, Hernia, Hepatomegaly, Spleenomegaly Lymphatic: negative: Adenopathy, Tenderness Musculoskeletal: positive: Normal Inspection. negative: CVA Tenderness, Decreased Range of Motion Extremity: positive: Normal Capillary Refill, Normal Inspection, Normal Range of Motion, Pelvis Stable. negative: Tender, Pedal Edema, Swelling, Erythema Integumentary: positive: Normal Color, Dry, Warm. 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 negative: EOM Palsy, Facial Droop, Sensory Deficit - Medical Decision Making 12/09/17 21:45 Pt treated and released <Aba Pandya - Last Filed: 12/09/17 21:47> Discharge Disposition <Teri Muñiz - Last Filed: 12/09/17 20:41> - Discharge Dispostion Last Admission D/C Date: 08/26/15 Decision to Admit order: No <Aba Pandya - Last Filed: 12/09/17 21:47> - Diagnosis Seizure - Discharge Dispostion Disposition: HOME Condition at time of disposition: Stable - Referrals Referrals: Valerie Frias MD [Primary Care Provider] - - Patient Instructions Printed Discharge Instructions: DI for Seizure Disorder -- Adult - Post Discharge Activity
[2017-12-09] MEDS ORDERED: ACETAMINOPHEN 325 MG TABLET (FP) PO ONE (19:50)
[2017-12-09] MEDS ORDERED: ACETAMINOPHEN 325 MG TABLET (FP) ONE (19:52)
--- NOTE | 2017-12-09 19:54 | PDOC ---
History of Present Illness <Teri Muñiz - Last Filed: 12/09/17 20:16> - General History Source: Patient Exam Limitations: No Limitations - History of Present Illness Initial Comments: 12/09/17 19:52 The patient is a 22F with a PMH of seizures (on topomax and keppra) who presents to the ER after having a syncopal episode at work. The patient states that she was at work and felt her normal state of health when she lost consciousness and had a witnessed seizure. She denies any bowel or bladder incontinence and denies tongue biting but does state that she felt disoriented and feels weak and tired now. She has no other complaints except for neck soreness which has been going on for 3 days, constant, located at the posterior base of her neck and mildly relieved by tylenol. She has no other acute complaints. <Nick Thapa - Last Filed: 12/17/17 07:25> - General Chief Complaint: Seizure Stated Complaint: SEIZURE Past History <Teri Muñiz - Last Filed: 12/09/17 20:16> - Past Medical History COPD: No Seizures: Yes (EPILEPSY) - Immunization History Immunization Up to Date: Yes - Suicide/Smoking/Psychosocial Hx Smoking Status: No Smoking History: Never smoked Have you smoked in the past 12 months: No Number of Cigarettes Smoked Daily: 0 Hx Alcohol Use: No Drug/Substance Use Hx: No Substance Use Type: None <ElierNick - Last Filed: 12/17/17 07:25> - Past Medical History Allergies/Adverse Reactions: Allergies Allergy/AdvReac Type Severity Reaction Status Date / Time shellfish derived Allergy Intermediate Hives Verified 12/09/17 19:07 Home Medications: Ambulatory Orders Topiramate [Topamax] 50 mg PO DAILY 12/09/17 levETIRAcetam [Keppra -] 2,000 mg PO DAILY 12/09/17 Review of Systems - Review of Systems Able to Perform ROS?: Yes Comments:: 12/09/17 20:52 GENERAL/CONSTITUTIONAL: Positive for fatigue. No fever or chills. No weakness. HEAD, EYES, EARS, NOSE AND THROAT: No change in vision. No ear pain or discharge. No sore throat. CARDIOVASCULAR: No chest pain, palpitations, or lightheadedness. RESPIRATORY: No cough, wheezing, shortness of breath, or hemoptysis. GASTROINTESTINAL: No nausea, vomiting, diarrhea, constipation, or abdominal pain. GENITOURINARY: No dysuria, frequency, hematuria, or change in urination. MUSCULOSKELETAL: No joint or muscle swelling or pain. No neck or back pain. SKIN: No rash or lesions. NEUROLOGIC: Positive for seizures and LOC. No headache, numbness, tingling, weakness, or change in strength/sensation. ENDOCRINE: No increased thirst. No abnormal weight change. HEMATOLOGIC/LYMPHATIC: No anemia, easy bleeding, or history of blood clots. ALLERGIC/IMMUNOLOGIC: No hives or skin allergy. Is the patient limited Citizen [place] proficient: No <Nick Thapa - Last Filed: 12/17/17 07:25> *Physical Exam - Vital Signs Last Vital Signs Temp Pulse Resp BP Pulse Ox 98.4 F 88 18 119/70 100 12/09/17 19:08 12/09/17 19:08 12/09/17 19:08 12/09/17 19:08 12/09/17 19:08 <Teri Muñiz - Last Filed: 12/09/17 20:16> - Vital Signs Last Vital Signs Temp Pulse Resp BP Pulse Ox 98.4 F 88 18 119/70 100 12/09/17 19:08 12/09/17 19:08 12/09/17 19:08 12/09/17 19:08 12/09/17 19:08 - Physical Exam Comments: 12/09/17 20:53 GENERAL: Well developed, well nourished. Awake and alert. No acute distress. HEENT: Normocephalic, atraumatic. Hearing grossly normal. Moist mucous membranes. PERRLA, EOMI. No conjunctival pallor. Sclera are non-icteric. NECK: Supple. Full ROM. No point tenderness. CARDIOVASCULAR: Regular rate and rhythm. No murmurs, rubs, or gallops. PULMONARY: No evidence of respiratory distress. Lungs clear to auscultation bilaterally. No wheezing, rales or rhonchi. ABDOMINAL: Soft. Non-tender. Non-distended. No rebound or guarding. GENITOURINARY: No CVA tenderness bilaterally. MUSCULOSKELETAL: Normal range of motion at all joints. No bony deformities or tenderness. EXTREMITIES: No cyanosis. No clubbing. No edema. No calf tenderness. SKIN: Warm and dry. Normal capillary refill. No rashes. No jaundice. NEUROLOGICAL: Alert, awake, appropriate. Cranial nerves 2-12 intact. Normal speech. Gait is normal without ataxia. PSYCHIATRIC: Cooperative. Good eye contact. Appropriate mood and affect. <Nick Thapa - Last Filed: 12/17/17 07:25> ED Treatment Course - LABORATORY CBC & Chemistry Diagram: 12/09/17 19:30 12/09/17 19:30 - ADDITIONAL ORDERS Additional order review: Laboratory Results 12/09/17 12/09/17 19:30 19:30 Serum , Qual Negative Urine Color Yellow Urine Appearance Slcloudy Urine pH 6.0 Ur Specific Crane 1.019 Urine Protein Negative Urine Glucose (UA) Negative Urine Ketones Negative Urine Blood 1+ H Urine Nitrite Negative Urine Bilirubin Negative Urine Urobilinogen Negative Ur Leukocyte Esterase 2+ H Urine WBC (Auto) 5 Urine RBC (Auto) 2 Ur Epithelial Cells Moderate Urine Mucus Rare 12/09/17 19:30 RBC 4.12 MCV 89.3 MCHC 35.2 RDW 12.7 MPV 8.0 Neutrophils % 39.4 L D Lymphocytes % 51.0 H D Monocytes % 5.5 Eosinophils % 2.8 D Basophils % 1.3 - Medications Given in the ED: ED Medications Discontinued Medications Generic Name Dose Route Start Last Admin Trade Name Northq PRN Reason Stop Dose Admin Acetaminophen 650 mg 12/09/17 19:50 12/09/17 19:53 Tylenol - PO 12/09/17 19:51 650 mg ONCE ONE Administration <Teri Muñiz - Last Filed: 12/09/17 20:16> - LABORATORY CBC & Chemistry Diagram: 12/09/17 19:30 12/09/17 19:30 <Nick Thapa - Last Filed: 12/17/17 07:25> Medical Decision Making - Medical Decision Making 12/09/17 20:16 The EKG was read by Dr. Thapa at 19:41:58 Vent. rate: 63 bpm OR interval: 126 ms QRS duration: 72 ms QT/QTc: 438/448 ms Normal sinus rhythm <Teri Muñiz - Last Filed: 12/09/17 20:16> - Medical Decision Making 12/09/17 20:55 The patient is a 22F with a PMH of seizures who presents to the ER s/p syncopal episode. The patient states that this was seizure and witnessed by her coworker. Will give pt her night dose of Keppra and monitor. Will order basic labs to r/o metabolic causes and infectious causes of seizure. 12/09/17 22:24 All labs negative. Pt given keppra dose in ED. Pt is vitally stable and will f/ u with neurologist. Pt understands and is ready for d/c. <Nick Thapa - Last Filed: 12/17/17 07:25> *DC/Admit/Observation/Transfer <Teri Muñiz - Last Filed: 12/09/17 20:16> <Nick Thapa - Last Filed: 12/17/17 07:25> Diagnosis at time of Disposition: Seizure - Discharge Dispostion Disposition: HOME Condition at time of disposition: Stable - Referrals Referrals: Valerie Frias MD [Primary Care Provider] - - Patient Instructions Printed Discharge Instructions: DI for Seizure Disorder -- Adult Additional Instructions: Please follow up with your primary care physician and neurologist in 2-3 days. Please return to the ER if you have any signs or symptoms of chest pain, shortness of breath, uncontrollable fever, chills, nausea, vomiting, numbness, tingling, or weakness in any part of your body, changes in vision, or slurred speech. Please take your medications as prescribed. Please return to the ER if symptoms persist, worsen, or new symptoms arise. - Post Discharge Activity
[2017-12-09 19:57] LABS: BASO % 1.3 % (0-2.0); EOS % 2.8 % (0-4.5); HEMATOCRIT 36.8 % (32.4-45.2); HEMOGLOBIN 12.9 GM/dL (10.7-15.3); MCH 31.4 pg (25.7-33.7); MCHC 35.2 g/dl (32.0-36.0); MEAN CELL VOLUME 89.3 fl (80-96); MONO % 5.5 % (3.8-10.2); NEUT % 39.4 % (42.8-82.8); PLATELET COUNT 309 K/MM3 (134-434); RBC 4.12 M/mm3 (3.60-5.2); RDW 12.7 % (11.6-15.6); URINE APPEARANCE SLCLOUDY; URINE BILIRUBIN NEGATIVE (<2.0 mg/dL); URINE COLOR YELLOW; URINE GLUCOSE (UA) NEGATIVE (NEGATIVE); URINE KETONE NEGATIVE (NEGATIVE); URINE NITRITE NEGATIVE (NEGATIVE); URINE PROTEIN NEGATIVE (NEGATIVE); URINE UROBILINOGEN NEGATIVE mg/dL (0.2-1.0); WHITE BLOOD COUNT 6.7 K/mm3 (4.0-10.0)
[2017-12-09 20:05] LABS: URINE LEUK ESTERASE 2+ (NEGATIVE)
[2017-12-09 20:06] LABS: EPI CELLS MODERATE /HPF (FEW); URINE MUCUS RARE
[2017-12-09 20:28] LABS: ALBUMIN 3.9 g/dl (3.4-5.0); ALK PHOS 94 U/L (45-117); ANION GAP 10 (8-16); BILIRUBIN,TOTAL 0.3 mg/dL (0.2-1.0); BLOOD UREA NITROGEN 14 mg/dL (7-18); CALCIUM 8.4 mg/dL (8.5-10.1); CHLORIDE 108 mmol/L (98-107); CO2 21 mmol/L (21-32); CREATININE 0.6 mg/dL (0.55-1.02); GLUCOSE,RANDOM 101 mg/dL (74-106); POTASSIUM 3.6 mmol/L (3.5-5.1); SGOT/AST 32 U/L (15-37); SGPT/ALT 56 U/L (12-78); SODIUM 139 mmol/L (136-145); TOT PROT 7.6 g/dl (6.4-8.2)
[2017-12-09] MEDS ORDERED: KETOROLAC TROMETHAMINE 30 MG/1 ML VIAL IVPUSH ONE (20:41)
[2017-12-09] MEDS ORDERED: levETIRAcetam 500 MG/5 ML INJECTION VIAL IVPB ONE ×3 (20:41→20:50)
[2017-12-09] MEDS ORDERED: KETOROLAC TROMETHAMINE 30 MG/1 ML VIAL ONE (20:50)
[2017-12-09 21:52] VITALS: BP 124/71; PULSE 60
--- NOTE | 2017-12-10 11:57 | EKG ---
Test Reason : Blood Pressure : / mmHG Vent. Rate : 063 BPM Atrial Rate : 063 BPM P-R Int : 126 ms QRS Dur : 072 ms QT Int : 438 ms P-R-T Axes : 006 050 038 degrees QTc Int : 448 ms NORMAL SINUS RHYTHM NORMAL ECG WHEN COMPARED WITH ECG OF 19-OCT-2013 15:08, NO SIGNIFICANT CHANGE WAS FOUND Confirmed by NEETA RODRIGEZ MD ([id number]) on 12/10/2017 11:57:10 AM Referred By: Confirmed By:NEETA RODRIGEZ MD
== END 2017-12-09 21:52 | disposition home or self-care (01) ==
LOC: JER 19:00
PROC: 3E033GC Introduction of Other Therapeutic Substance into Peripheral Vein, Percutaneous Approach (ICD-10-PCS; principal; 2017-12-09)
PROC: 3E033NZ Introduction of Analgesics, Hypnotics, Sedatives into Peripheral Vein, Percutaneous Approach (ICD-10-PCS; 2017-12-09)
DX: G40.909 Epilepsy, unspecified, not intractable, without status epilepticus (principal); R55 Syncope and collapse
CPT/HCPCS: 36415; 80053; 81003; 81015; 84703; 85025; 93005; 93010; 99282-25

== ENCOUNTER 2018-05-23 13:37 | Emergency (ER) | payer OTHER ==
[2018-05-23 14:00] VITALS: BP 136/64; PULSE 72; TEMP 97.7; BMI 35.6
[2018-05-23] MEDS ORDERED: KETOROLAC TROMETHAMINE 60 MG/2 ML VIAL IM ONE (14:47)
[2018-05-23 14:48] LABS: URINE APPEARANCE CLOUDY; URINE BILIRUBIN NEGATIVE (<2.0 mg/dL); URINE COLOR YELLOW; URINE GLUCOSE (UA) NEGATIVE (NEGATIVE); URINE KETONE NEGATIVE (NEGATIVE); URINE LEUK ESTERASE 1+ (NEGATIVE); URINE NITRITE NEGATIVE (NEGATIVE); URINE PROTEIN 1+ (NEGATIVE); URINE UROBILINOGEN NEGATIVE mg/dL (0.2-1.0)
[2018-05-23] MEDS ORDERED: KETOROLAC TROMETHAMINE 60 MG/2 ML VIAL ONE (14:52)
[2018-05-23 14:53] LABS: HCG,QUALITATIVE URINE NEGATIVE
--- NOTE | 2018-05-23 14:56 | PDOC ---
History of Present Illness - General Chief Complaint: Pain Stated Complaint: PAIN Time Seen by Provider: 05/23/18 14:05 History Source: Patient Exam Limitations: No Limitations - History of Present Illness Travel History: No Timing/Duration: reports: constant Quality: reports: cramping Abdominal Pain Onset Location: reports: suprapubic (left) Pain Radiation: reports: no radiation Activities at Onset: reports: none Aggravating Factors: improves with: Movement Alleviating Factors: improves with: None Past History - Travel Traveled outside of the country in the last 30 days: No - Past Medical History Allergies/Adverse Reactions: Allergies Allergy/AdvReac Type Severity Reaction Status Date / Time shellfish derived Allergy Intermediate Hives Verified 05/23/18 14:00 Home Medications: Ambulatory Orders levETIRAcetam [Keppra -] 2,000 mg PO DAILY 12/09/17 Topiramate [Trokendi Xr] 200 mg PO DAILY 05/23/18 COPD: No Seizures: Yes (EPILEPSY) - Immunization History Immunization Up to Date: Yes - Suicide/Smoking/Psychosocial Hx Smoking Status: No Smoking History: Never smoked Have you smoked in the past 12 months: No Number of Cigarettes Smoked Daily: 0 Information on smoking cessation initiated: No Hx Alcohol Use: No Drug/Substance Use Hx: No Substance Use Type: None Patient Lives Alone: No Lives with/in: parents Review of Systems - Review of Systems Able to Perform ROS?: No Constitutional: No: Symptoms Reported HEENTM: No: Symptoms Reported Respiratory: No: Symptoms reported Cardiac (ROS): No: Symptoms Reported ABD/GI: Yes: Abdominal cramping (left suprapubic). No: Nausea : No: Symptoms Reported Musculoskeletal: No: Symptoms Reported Integumentary: No: Symptoms Reported Neurological: No: Symptoms reported Endocrine: No: Symptoms Reported Hematologic/Lymphatic: No: Symptoms Reported *Physical Exam - Vital Signs Last Vital Signs Temp Pulse Resp BP Pulse Ox 97.7 F 72 18 136/64 99 05/23/18 13:57 05/23/18 13:57 05/23/18 13:57 05/23/18 13:57 05/23/18 13:57 - Physical Exam General Appearance: Yes: Nourished, Appropriately Dressed. No: Apparent Distress HEENT: positive: EOMI, TMs Normal, Pharynx Normal. negative: Pale Conjunctivae Neck: positive: Normal Thyroid, Supple Respiratory/Chest: positive: Lungs Clear, Normal Breath Sounds. negative: Respiratory Distress, Accessory Muscle Use Cardiovascular: positive: Regular Rhythm, Regular Rate. negative: Murmur Female Pelvic Exam: positive: normal external exam. negative: discharge, vaginal bleeding Gastrointestinal/Abdominal: positive: Soft, Tenderness (left suprapubic) Musculoskeletal: negative: CVA Tenderness Extremity: positive: Normal Capillary Refill. negative: Pedal Edema Integumentary: positive: Normal Color, Warm, Moist Neurologic: positive: Normal Mood/Affect, Motor Strength 5/5 (ambulatory) ED Treatment Course - RADIOLOGY Radiology Studies Ordered: Category Date Time Status PELVIC / BLADDER US [US] Stat Ultrasound 05/23/18 14:46 Ordered TRANSVAGINAL ULTRASOUND US [US] Stat Ultrasound 05/23/18 14:46 Ordered Medical Decision Making - Medical Decision Making 05/23/18 14:50 CC: Left suprapubic pain x 3 days. hx irreg menses (LMP 08/2017) and left ovarian cyst Exan: left suprapubic tenderness. No vag discharge , no mid or right suprapubic pain Plan: ua, upreg, toradol im , and u/s 05/23/18 16:05 Laboratory Tests 05/23/18 14:40 Urine Protein 1+ H Urine Blood 1+ H Ur Leukocyte Esterase 1+ H Urine WBC (Auto) 11 Urine HCG, Qual Negative U/s shows rt ovarian simple cyst 2.8 cm. No free fluid in pelvis or adnexal masses. Pt states feeling better after receiving toradol. 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 pt needs to discuss her irreg menses and begin a w/u since she is also trying to conceive. Pt understands No previous + u cx on file. Will treat with keflex *DC/Admit/Observation/Transfer Diagnosis at time of Disposition: UTI (urinary tract infection), Menses, irregular - Discharge Dispostion Disposition: HOME Condition at time of disposition: Improved - Referrals Referrals: Valerie Frias MD [Primary Care Provider] - - Patient Instructions Printed Discharge Instructions: Absent Periods, DI for Urinary Tract Infection (UTI) Additional Instructions: Please follow up with your [employer] to discuss your irregular menstrual cyce and your plans to conceive. I recommend taking motrin 600mg for pain and to take antibiotic for Urinary tract infection - Post Discharge Activity
[2018-05-23 14:57] LABS: EPI CELLS MANY /HPF (FEW); URINE BACTERIA RARE /hpf (NONE SEEN); URINE MUCUS RARE
== END 2018-05-23 16:26 | disposition home or self-care (01) ==
LOC: JER 13:37
PROC: 3E0233Z Introduction of Anti-inflammatory into Muscle, Percutaneous Approach (ICD-10-PCS; principal; 2018-05-23)
DX: N83.202 Unspecified ovarian cyst, left side (principal); N92.5 Other specified irregular menstruation; G40.909 Epilepsy, unspecified, not intractable, without status epilepticus
CPT/HCPCS: 76830-TC; 76856-TC; 81003; 81015; 84703; 87086; 96372; 99281-25

== ENCOUNTER 2019-05-23 08:55 | Emergency (ER) | payer OTHER ==
[2019-05-23 09:03] VITALS: BP 136/81; PULSE 59; TEMP 98.2; BMI 35.6
[2019-05-23] MEDS ORDERED: predniSONE 20 MG TABLET (UD) PO ONE (09:10)
[2019-05-23] MEDS ORDERED: diphenhydrAMINE HCL 12.5 MG/5 ML UNIT-DOSE CUPS PO ONE (09:11)
--- NOTE | 2019-05-23 09:16 | PDOC ---
History of Present Illness - General Chief Complaint: Edema Stated Complaint: Allergic Reaction Time Seen by Provider: 05/23/19 09:07 History Source: Patient Exam Limitations: No Limitations - History of Present Illness Initial Comments: 05/23/19 09:13 24-year-old female currently on amoxicillin day 3 of 7 for prophylactics due to a tooth extraction to the right lower quadrant scheduled for next week. Patient states developed a rash to the face and arms last night which resolved but states remained itchy to the night. Patient states then awoke this morning with upper lip swelling which she describes a burning sensation. Patient denies difficulty breathing, previous allergic reaction to amoxicillin or difficulty swallowing. Is this a multiple visit Asthma Patient?: No Timing/Duration: changing over time Severity: mild, moderate Associated Symptoms: reports: rash Past History - Travel Traveled outside of the country in the last 30 days: No Close contact w/someone who was outside of country & ill: No - Past Medical History Allergies/Adverse Reactions: Allergies Allergy/AdvReac Type Severity Reaction Status Date / Time shellfish derived Allergy Intermediate Hives Verified 05/23/19 09:00 Home Medications: Ambulatory Orders levETIRAcetam [Keppra -] 1,500 mg PO BID 12/09/17 Topiramate [Trokendi Xr] 200 mg PO DAILY 05/23/18 COPD: No Seizures: Yes (EPILEPSY) - Immunization History Immunization Up to Date: Yes - Psycho Social/Smoking Cessation Hx Smoking Status: No Smoking History: Never smoked Have you smoked in the past 12 months: No Number of Cigarettes Smoked Daily: 0 Hx Alcohol Use: No Drug/Substance Use Hx: No Substance Use Type: None Patient Lives Alone: No Lives with/in: parents Review of Systems - Review of Systems Able to Perform ROS?: Yes Constitutional: No: Symptoms Reported HEENTM: No: Symptoms Reported Respiratory: No: Symptoms reported Cardiac (ROS): No: Symptoms Reported ABD/GI: No: Symptoms Reported Musculoskeletal: No: Symptoms Reported Integumentary: Yes: Lumps, Pruritus, Rash Neurological: No: Symptoms reported Hematologic/Lymphatic: No: Symptoms Reported *Physical Exam - Vital Signs Last Vital Signs Temp Pulse Resp BP Pulse Ox 98.2 F 59 L 18 136/81 100 05/23/19 09:01 05/23/19 09:01 05/23/19 09:01 05/23/19 09:01 05/23/19 09:01 - Physical Exam General Appearance: Yes: Nourished, Appropriately Dressed. No: Apparent Distress HEENT: positive: EOMI, NATHAN, TMs Normal, Pharynx Normal. negative: Pale Conjunctivae Neck: positive: Supple Respiratory/Chest: positive: Lungs Clear, Normal Breath Sounds. negative: Respiratory Distress, Accessory Muscle Use Cardiovascular: positive: Regular Rhythm. negative: Murmur Integumentary: positive: Rash (Small patches of erythematous wheals to right arm and left forehead), Other (center of upper lip mildly edematous with erythema and semifirm raised papule) Neurologic: positive: Motor Strength 5/5 (Ambulatory) Medical Decision Making - Medical Decision Making 05/23/19 09:16 Chief complaint: Rash yesterday which she describes as pruritic but resolved significantly this morning but awoke with upper lip swelling patient currently on amoxicillin which he states has been on before patient also history of epilepsy and takes medication a regular basis. Exam: Patient with patches of wheals to right arm and left forehead along with center of upper lip swelling and erythema and a noted firm papule to center over the cupids bow Plan: Prednisone and Benadryl ordered. Patient also is to stop the amoxicillin and notify the dentist. patient will be prescribed the same for home Discharge - Discharge Information Problems reviewed: Yes Clinical Impression/Diagnosis: Rash Condition: Good Disposition: HOME - Follow up/Referral - Patient Discharge Instructions Patient Printed Discharge Instructions: DI for Rash Additional Instructions: Please take medication as prescribed starting tomorrow since you were given your first dose here in the ER. Please also notify the dentist of today's visit Please start clindamycin today as discussed with your dentist. - Post Discharge Activity
[2019-05-23] MEDS ORDERED: predniSONE 20 MG TABLET (UD) ONE (09:24)
[2019-05-23] MEDS ORDERED: diphenhydrAMINE HCL 25 MG CAPSULE (FP) PO ONE (09:25)
== END 2019-05-23 10:21 | disposition home or self-care (01) ==
LOC: JER 08:55
DX: R21 Rash and other nonspecific skin eruption (principal); Z79.2 Long term (current) use of antibiotics; G40.909 Epilepsy, unspecified, not intractable, without status epilepticus; Z91.013 Allergy to seafood
CPT/HCPCS: 99282-25

== ENCOUNTER 2022-12-31 14:07 | Emergency (ER) | payer OTHER ==
[2022-12-31 14:16] VITALS: RESP 19; BMI 37.8
[2022-12-31] MEDS ORDERED: ACETAMINOPHEN 1000 MG/100 ML BAG IVPB ONE (14:22)
[2022-12-31] MEDS ORDERED: SODIUM CHLORIDE 1,000 ML IV STA (14:22)
[2022-12-31] MEDS ORDERED: ONDANSETRON 4 MG/2 ML VIAL IVPUSH ONE (14:26)
[2022-12-31] MEDS ORDERED: ACETAMINOPHEN INJECTION 100 ML IVPB ONE (14:47)
[2022-12-31] MEDS ORDERED: ONDANSETRON 4 MG/2 ML VIAL ONE (14:47)
[2022-12-31 15:12] LABS: BASO % 0.7 % (0-2.0); EOS % 0.1 % (0-4.5); HEMATOCRIT 41.3 % (32.4-45.2); HEMOGLOBIN 14.4 GM/dL (10.7-15.3); LYMPH % 20.5 % (8-40); MCH 31.2 pg (25.7-33.7); MCHC 34.9 g/dl (32.0-36.0); MEAN CELL VOLUME 89.1 fl (80-96); MEAN PLT VOLUME 7.8 fl (7.5-11.1); MONO % 6.1 % (3.8-10.2); NEUT % 72.6 % (42.8-82.8); PLATELET COUNT 245 10^3/uL (134-434); RBC 4.63 M/mm3 (3.60-5.2); WHITE BLOOD COUNT 5.3 K/mm3 (4.0-10.0)
[2022-12-31 15:33] LABS: ACTIVATED PTT 32.1 SECONDS (25.2-36.5); INR 1.12 (0.83-1.09)
[2022-12-31 15:36] LABS: EPI CELLS >36 /uL (0-25.1); HYALINE CASTS 1 /uL (0-3.1); PH,URINE 7.5 (5.0-8.0); URINE APPEARANCE CLEAR; URINE BACTERIA 686 /uL (0-1359); URINE BILIRUBIN NEGATIVE (NEGATIVE); URINE COLOR YELLOW; URINE GLUCOSE (UA) NEGATIVE (NEGATIVE); URINE KETONE NEGATIVE (NEGATIVE); URINE LEUK ESTERASE NEGATIVE (NEGATIVE); URINE NITRITE NEGATIVE (NEGATIVE); URINE PROTEIN 1+ (NEGATIVE); URINE RBC 170 /uL (0-23.9); URINE WBC 22 /uL (0-25.8)
[2022-12-31 15:37] LABS: POTASSIUM 3.4 mmol/L (3.5-5.1)
[2022-12-31 15:39] LABS: BLOOD UREA NITROGEN 10.8 mg/dL (7-18); CALCIUM 8.4 mg/dL (8.5-10.1)
[2022-12-31 15:40] LABS: ALBUMIN 3.9 g/dl (3.4-5.0)
[2022-12-31 15:43] LABS: CREATININE 0.6 mg/dL (0.55-1.3)
[2022-12-31 15:44] LABS: BILIRUBIN,TOTAL 0.7 mg/dL (0.2-1); TOT PROT 7.8 g/dl (6.4-8.2)
[2022-12-31 17:37] VITALS: BP 102/71; PULSE 101; TEMP 99.5
== END 2022-12-31 18:37 | disposition home or self-care (01) ==
LOC: JER 14:07
PROC: 3E033NZ Introduction of Analgesics, Hypnotics, Sedatives into Peripheral Vein, Percutaneous Approach (ICD-10-PCS; principal; 2022-12-31)
PROC: 3E033GC Introduction of Other Therapeutic Substance into Peripheral Vein, Percutaneous Approach (ICD-10-PCS; 2022-12-31)
PROC: 3E0337Z Introduction of Electrolytic and Water Balance Substance into Peripheral Vein, Percutaneous Approach (ICD-10-PCS; 2022-12-31)
DX: R10.11 Right upper quadrant pain (principal); R11.2 Nausea with vomiting, unspecified; R19.7 Diarrhea, unspecified; R82.71 Bacteriuria; K82.4 Cholesterolosis of gallbladder; Z20.822 Contact with and (suspected) exposure to COVID-19
CPT/HCPCS: 0241U-QW; 36415; 76705-TC; 80053; 81003; 83690; 84703; 85025; 85610; 85730; 87086; 99284-25

== ENCOUNTER 2023-01-16 04:19 | Day surgery (SDC) | payer OTHER ==
[2023-01-14 16:10] VITALS: BMI 37.8
[2023-01-16] MEDS ORDERED: LIDOCAINE HCL/PF 2% SDV 5ML VIAL ONE (11:54)
[2023-01-16] MEDS ORDERED: PROPOFOL 20 ML ONE (11:54)
[2023-01-16] MEDS ORDERED: ROCURONIUM BROMIDE 50 MG/5 ML SYRINGE ONE (11:54)
[2023-01-16] MEDS ORDERED: SUCCINYLCHOLINE CHLORIDE 200 MG/10 ML SYRINGE ONE (11:55)
[2023-01-16] MEDS ORDERED: MIDAZOLAM HCL 2 MG/2 ML SINGLE DOSE VIAL ONE (11:55)
[2023-01-16] MEDS ORDERED: BUPIVACAINE HCL/PF 0.5% (5MG/ML) 10 ML VIAL ONE (12:03)
[2023-01-16] MEDS ORDERED: ONDANSETRON 4 MG/2 ML VIAL ONE ×2 (12:20→16:21)
[2023-01-16] MEDS ORDERED: DEXAMETHASONE SOD PHOSPHATE 4 MG/1 ML VIAL ONE (12:20)
[2023-01-16] MEDS ORDERED: ceFAZolin SODIUM 1 GM VIAL ONE (12:20)
[2023-01-16] MEDS ORDERED: ceFAZolin SODIUM 1 GM VIAL IVPB ONE (12:20)
[2023-01-16] MEDS ORDERED: KETOROLAC TROMETHAMINE 30 MG/1 ML VIAL ONE (12:20)
[2023-01-16] MEDS ORDERED: BUPIVACAINE HCL/PF 0.5% (5 MG/ML) 30 ML VIAL IJ ONE ×2 (12:26)
[2023-01-16] MEDS ORDERED: NEOSTIGMINE METHYLSULFATE 0.5 MG/1 ML - 10 ML MDV ONE (13:20)
[2023-01-16] MEDS ORDERED: GLYCOPYRROLATE 0.2 MG/1 ML VIAL ONE ×2 (13:20)
[2023-01-16] MEDS ORDERED: oxyCODONE HCL 5 MG TABLET PO PRN (13:48)
[2023-01-16] MEDS ORDERED: ONDANSETRON 4 MG/2 ML VIAL IVPUSH PRN (13:48)
[2023-01-16] MEDS ORDERED: oxyCODONE HCL 5 MG TABLET ONE (16:20)
[2023-01-16 16:47] VITALS: RESP 20; TEMP 97.5
[2023-01-16 19:29] VITALS: BP 117/56; PULSE 71
== END 2023-01-16 19:00 | disposition home or self-care (01) ==
LOC: JASU-SURG 04:19
PROVIDERS: ATTEND Surgery
PROC: 0FT44ZZ Resection of Gallbladder, Percutaneous Endoscopic Approach (ICD-10-PCS; principal; 2023-01-16 12:15)
DX: K81.1 Chronic cholecystitis (principal)
CPT/HCPCS: 81025; 88304-TC; 94760